=== PATIENT | female | born 1960 | race Asian ===

== ENCOUNTER 2019-01-07 21:34 | Inpatient (IN) | payer OTHER, MEDICAID ==
[~2019-01-07] VITALS: Ht 160 cm; Wt 86.6 kg
[2019-01-07] MEDS ORDERED: SODIUM CHLORIDE 0.9% 1,000 ML IV ONE (22:09)
[2019-01-07] MEDS ORDERED: ONDANSETRON HCL 4MG/2ML INJ IV STA (22:09)
[2019-01-07] MEDS ORDERED: MORPHINE SULFATE 4 MG/ML CPJ (NOT FOR IM USE) IV STA (22:09)
[2019-01-07] MEDS ORDERED: ASPIRIN 81MG TABLET PO ONE (22:15)
[2019-01-07] MEDS ORDERED: NITROGLYCERIN OINT 1GM/INCH UDPKT TD ONE (22:15)
[2019-01-07 23:04] LABS: CHLORIDE 102 mEq/L (98-107)
[2019-01-07 23:06] LABS: BASOPHILS % 0.9 % (0.0-2.0); HEMATOCRIT. 40.6 % (36.0-48.0); HEMOGLOBIN. 13.3 g/dL (12.0-16.0); LYMPHOCYTES % 21.4 % (20.0-50.0); MEAN CORPUSCULAR HEMOGLOBIN 29.2 pg (28.0-32.0); MEAN PLATELET VOLUME 10.4 fl (7.4-10.4); MONOCYTES % 5.3 % (2.0-8.0); NEUTROPHILS % 71.4 % (40.0-76.0); PLATELET 315 x1000/uL (130-400); RED BLOOD CELL COUNT 4.56 mill/uL (4.2-5.4); RED CELL DISTRIBUTION WIDTH 14.5 % (11.6-14.6)
[2019-01-07] MEDS ORDERED: FUROSEMIDE 20MG/2ML VIAL IVP ONE (23:30)
[2019-01-08] MEDS ORDERED: DEXTROSE 50% WATER 50ML SYRINGE IV PRN (01:30)
[2019-01-08] MEDS: BLOOD SUGAR DIAGNOSTIC STRIP TEST SCH ×5 (02:15→21:23)
[2019-01-08] MEDS: INSULIN LISPRO (MEDIUM DOSE) 100 UNITS/ML SUBCUT SCH ×6 (02:20→21:00)
[2019-01-08 05:40] VITALS: BP 117/63
[2019-01-08] MEDS ORDERED: MORPHINE SULFATE 4 MG/ML CPJ (NOT FOR IM USE) IV PRN (07:30)
[2019-01-08 08:00] VITALS: BP_SYST 78; BP_SYST 87; BP_DIAS 34
[2019-01-08] MEDS: NITROGLYCERIN OINT 1GM/INCH UDPKT TD SCH ×3 (08:00→21:22)
[2019-01-08] MEDS ORDERED: FUROSEMIDE 40MG/4ML VIAL IVP SCH (09:00)
[2019-01-08] MEDS: METOPROLOL TARTRATE 25MG TABLET PO SCH ×2 (09:00→21:22)
[2019-01-08] MEDS ORDERED: ASPIRIN 325MG EC TABLET PO SCH (09:00)
[2019-01-08] MEDS ORDERED: METOPROLOL TARTRATE 50MG TABLET PO SCH (09:00)
[2019-01-08] MEDS ORDERED: SODIUM CHLORIDE 0.9% 500 ML IV SCH (09:30)
[2019-01-08] MEDS ORDERED: REGADENOSON 0.4 MG/5 ML IV NR (09:45)
[2019-01-08] MEDS: CLOPIDOGREL 75MG TABLET PO SCH ×2 (09:45→13:58)
[2019-01-08] MEDS: INSULIN GLARGINE UD 100 UNITS/ML SYR SUBCUT SCH ×3 (10:00→21:23)
[2019-01-08] MEDS ORDERED: REGADENOSON 0.4 MG/5 ML IV ONE (11:21)
[2019-01-08 12:00] VITALS: BP 136/71
[2019-01-08 16:00] VITALS: BP 102/42
[2019-01-08] MEDS: INSULIN LISPRO 100 UNITS/ML SUBCUT SCH (18:14)
[2019-01-08 19:04] LABS: T4 FREE 1.08 ng/dL (0.76-1.46)
[2019-01-08 19:05] LABS: CREATINE KINASE MB FRACTION 1.3 ng/mL (0.5-3.6)
[2019-01-08 20:00] VITALS: BP 131/66
[2019-01-08] MEDS ORDERED: ATORVASTATIN CALCIUM 40MG TABLET PO SCH (21:00)
[2019-01-09] VITALS: BP 114/62
[2019-01-09 02:48] LABS: CREATINE KINASE 56 IU/L (26-192); CREATINE KINASE MB FRACTION < 1.0 ng/mL (0.5-3.6)
[2019-01-09 04:00] VITALS: BP 109/49
[2019-01-09] MEDS: NITROGLYCERIN OINT 1GM/INCH UDPKT TD SCH (05:40)
[2019-01-09] MEDS: BLOOD SUGAR DIAGNOSTIC STRIP TEST SCH (06:53)
[2019-01-09 07:04] LABS: CREATINE KINASE 60 IU/L (26-192)
[2019-01-09 07:07] LABS: CREATINE KINASE MB FRACTION < 1.0 ng/mL (0.5-3.6)
[2019-01-09 08:00] VITALS: BP 119/60
[2019-01-09] MEDS: INSULIN LISPRO 100 UNITS/ML SUBCUT SCH (08:17)
[2019-01-09] MEDS: INSULIN LISPRO (MEDIUM DOSE) 100 UNITS/ML SUBCUT SCH (08:17)
[2019-01-09] MEDS ORDERED: ASPIRIN 81MG TABLET PO SCH (09:00)
[2019-01-09 09:04] VITALS: BP 119/60
== END 2019-01-09 09:40 | disposition home or self-care (01) | DRG 203 ==
LOC: ER 22:19 → 7WST 23:20 → EDBEDREQTM 23:29 → EDBEDREQ 23:29 → ENRESERV 01-08 04:44
PROVIDERS: ADMIT Internal Medicine; ATTEND Internal Medicine
DX: M94.0 Chondrocostal junction syndrome [Tietze] (principal); I11.0 Hypertensive heart disease with heart failure; I50.40 Unspecified combined systolic (congestive) and diastolic (congestive) heart failure; I25.10 Atherosclerotic heart disease of native coronary artery without angina pectoris; E66.9 Obesity, unspecified; E78.5 Hyperlipidemia, unspecified; E11.9 Type 2 diabetes mellitus without complications; I44.7 Left bundle-branch block, unspecified; F17.210 Nicotine dependence, cigarettes, uncomplicated; Z68.33 Body mass index [BMI] 33.0-33.9, adult; I25.2 Old myocardial infarction; Z95.5 Presence of coronary angioplasty implant and graft; Z71.6 Tobacco abuse counseling; Z71.3 Dietary counseling and surveillance
CPT/HCPCS: 36415; 71045; 78452; 80061; 82550; 82553; 82962; 83036; 83880; 84439; 84443; 84484; 85379; 93005; 93017; 93306; 93970; 96374; 96375; 99285; A9500; J1815; J1940; J2270; J2405; J2785; J7030; J7040

== ENCOUNTER 2021-05-24 01:43 | Emergency (ER) | payer OTHER, MEDICAID ==
[~2021-05-24] VITALS: Ht 157.5 cm; Wt 64.0 kg
[2021-05-24 03:26] LABS: BASOPHILS % 0.7 % (0.0-2.0); EOSINOPHILS % 0.9 % (0.0-5.0); HEMATOCRIT. 40.1 % (36.0-48.0); HEMOGLOBIN. 13.2 g/dL (12.0-16.0); LYMPHOCYTES % 13.8 % (20.0-50.0); MEAN CORPUSCULAR HEMOGLOBIN 26.2 pg (28.0-32.0); MEAN CORPUSCULAR VOLUME 79.6 fL (81.0-99.0); MEAN PLATELET VOLUME 9.1 fl (7.4-10.4); MONOCYTES % 7.1 % (2.0-8.0); NEUTROPHILS % 77.5 % (40.0-76.0); PLATELET 214 x1000/uL (130-400); RED BLOOD CELL COUNT 5.03 mill/uL (4.2-5.4); RED CELL DISTRIBUTION WIDTH 12.9 % (11.6-14.6)
[2021-05-24 03:33] LABS: CHLORIDE 102 mEq/L (98-107)
[2021-05-24 03:36] LABS: INR 0.9; PROTHROMBIN TIME 10.2 sec (9.6-11.0)
[2021-05-24] MEDS ORDERED: SODIUM CHLORIDE 0.9% 1,000 ML IV ONE (04:00)
[2021-05-24] MEDS ORDERED: INSULIN REGULAR (HUMULIN R) UD 100 UNITS/ML SYR SUBCUT ONE (04:15)
[2021-05-24 12:05] VITALS: BP 114/58
== END 2021-05-24 12:22 | disposition short-term general hospital (02) ==
LOC: ER 01:43
DX: R07.89 Other chest pain (principal); E11.65 Type 2 diabetes mellitus with hyperglycemia; F41.0 Panic disorder [episodic paroxysmal anxiety]; I10 Essential (primary) hypertension; J98.11 Atelectasis; Z79.4 Long term (current) use of insulin; Z95.0 Presence of cardiac pacemaker
CPT/HCPCS: 36415; 71045; 80053; 82962; 83880; 84484; 85025; 85610; 93005; 96360; 96372; 99285; J1815; J7030; Z7610

== ENCOUNTER 2022-08-30 15:52 | Emergency (ER) | payer OTHER ==
[~2022-08-30] VITALS: Ht 165.1 cm; Wt 80.0 kg
[~2022-08-30 15:52] MED LIST: COR3 PO; FURO40TA5 PO; LISI2.5T47 PO; METF-907 MT; POTA-189 PO
[2022-08-30 15:54] VITALS: BP 0/0
[2022-08-30] MEDS ORDERED: EPINEPHRINE 0.1MG/ML (1:10,000) 10ML SYR ONE (16:03)
== END 2022-08-30 16:30 ==
LOC: ER 15:52
DX: I46.9 Cardiac arrest, cause unspecified (principal); I10 Essential (primary) hypertension; E11.9 Type 2 diabetes mellitus without complications
CPT/HCPCS: 31500; 99285; J3490